=== PATIENT | female | born 1980 | race Asian ===

== ENCOUNTER 2017-07-25 10:45 | Outpatient (CLI) | payer BC ==
--- NOTE | 2017-07-25 12:04 | Discharge Instructions ---
Discharge Instructions Date of Service Jul 25, 2017. Admission Reason for Admission: R/O Labor Discharge Discharge Diagnosis / Problem: Discharge Goals Goal(s): Continuing OB care Activity Recommendations Activity Limitations: as noted below SPECIAL CARE INSTRUCTIONS: Call Doctor if: * Regular contractions every 5 minutes or greater than contractions in one hour. * Bleeding * Water breaks or is leaking * Decreased movement * Fever >100.4 degrees F * Pain not relieved by routine measures or pain medication ordered. FOLLOW UP VISIT: Return to Labor and Delivery on for /call for appointment time . Follow-up Visit with: When: . Current Hospital Diet Patient's current hospital diet: Discharge Diet Recommended Diet: Regular Diet Pending Studies Studies pending at discharge: no Medical Emergencies . Who to Call and When: Medical Emergencies: If at any time you feel your situation is an emergency, please call 911 immediately. . Non-Emergent Contact Non-Emergency issues call your: Specialist . . "Provider Documentation" section prepared by Jai Blancas. . VTE Core Measure Inpt VTE Proph given/why not?: Treatment not tolerated
--- NOTE | 2017-07-25 12:08 | Progress Note ---
Progress Note Date of Service Jul 25, 2017. Progress Note pt sent from office for labor check pt was 4-5cm/ in office came from office right away FHR; CAT1 Ctx; Minimal Pt and spouse wish to go home and wait for labor they live about 7 mins from here and can get here if ctx inc spouse tells me he has meeting felix at 3;00pm today and have to pick out hand her daughter. disch home with instructions
[2017-07-26] MEDS ORDERED: FERR1TAB23 PO (06:51)
[2017-07-26] MEDS ORDERED: PRENTAB26 PO (06:51)
== END 2017-07-25 12:18 | disposition home or self-care (01) ==
LOC: C.LD 10:45 → C.OPB 10:45
PROVIDERS: ATTEND Obstetrics & Gynecology
DX: O09.523 Supervision of elderly multigravida, third trimester (principal); Z3A.00 Weeks of gestation of pregnancy not specified

== ENCOUNTER 2017-07-26 03:05 | Inpatient (IN) | payer BC ==
[~2017-07-26] VITALS: Ht 157.5 cm; Wt 62.3 kg
[2017-07-26] MEDS ORDERED: FENTANYL CITRATE INJ 50 MCG/1 ML 2 ML VIAL ONE (04:11)
[2017-07-26] MEDS ORDERED: FENTANYL 2MCG/ML ROPIV 1.25MG/ML 100ML BAG EPI ONE (04:11)
[2017-07-26] MEDS ORDERED: EpHEDrine SULFATE INJ 50 MG/ML AMP ONE (04:11)
[2017-07-26] MEDS ORDERED: BUPIVACAINE 0.25% 30 ML VIAL ONE (04:11)
[2017-07-26 04:26] LABS: HEMATOCRIT 35.5 % (37-47); MEAN CELL VOLUME 89.6 fL (80-100); MEAN CORPUSCULAR HEMOGLOBIN 29.3 pg (25-34); MEAN CORPUSCULAR HGB CONC 32.7 g/dl (32-36); MEAN PLATELET VOLUME 10.4 fL (7.4-10.4); PLATELET COUNT 113 K/uL (130-400); RED BLOOD COUNT 3.96 M/uL (4.2-5.4); WHITE BLOOD COUNT 12.42 K/uL (4.8-10.8)
--- NOTE | 2017-07-26 05:22 | HISTORY & PHYSICAL EXAMINATION ---
DATE OF ADMISSION: 07/26/2017 HISTORY OF PRESENT ILLNESS: The patient is a 37-year-old G2, P1, due date 07/28/2017 making her 39 weeks and 5 days today who presented to labor and delivery in labor. On arrival, she had no shortness of breath, no chills, no fever. The patient had discomfort from labor contractions. She was examined and found to be 7 cm, 90% effaced and +1 station. The patient was therefore admitted in anticipation of labor. COURSE: Has been unremarkable. The patient has advanced maternal age. LABS: Blood type is A positive, antibody negative, rubella immune, GBS negative. PAST MEDICAL HISTORY: The patient has history of chronic thrombocytopenia. Platelets today is 111,000. PAST SURGICAL HISTORY: The patient has history of appendectomy. SOCIAL HISTORY: The patient denies tobacco, drug or alcohol use. ALLERGIES: No known drug allergies. ATTENDING PHYSICIAN HISTORY: The patient delivered a live infant female in January 2013. weighed 6 pounds 12 ounces. PHYSICAL EXAMINATION: GENERAL: Well-developed, well-nourished white female in no acute distress. HEART: S1, S2, regular rhythm and rate. LUNGS: Clear to auscultation bilaterally. ABDOMEN: Gravid. PELVIC EXAMINATION: 7 cm, 90% effaced and +1 station. EXTREMITIES: No cyanosis, clubbing or edema. ASSESSMENT AND PLAN: A 37-year-old G2, P1 at 39 and 5 weeks in labor. The patient has been admitted and we anticipate vaginal delivery.
[2017-07-26] MEDS ORDERED: LACTATED RINGER'S 1000ML 1,000 ML IV PRN (05:55)
[2017-07-26] MEDS ORDERED: LACTATED RINGER'S 1000ML 1,000 ML IV SCH ×2 (05:55→13:46)
[2017-07-26] MEDS ORDERED: FENTANYL 2MCG/ML ROPIV 1.25MG/ML 100ML BAG EPI PRN (06:00)
[2017-07-26] MEDS ORDERED: ONDANSETRON INJ 2 MG/ML 2 ML VIAL IV PRN (06:00)
[2017-07-26] MEDS ORDERED: EpHEDrine SULFATE INJ 50 MG/ML AMP IV PRN (06:00)
[2017-07-26] MEDS ORDERED: NALOXONE HCL INJ 1 MG in SODIUM CHLORIDE 0.9% 1000ML 1,000 ML IV PRN (06:00)
[2017-07-26] MEDS ORDERED: DiphenhydrAMINE HCL 50 MG/ML VIAL IV PRN (06:00)
[2017-07-26] MEDS ORDERED: NALOXONE HCL INJ 0.4 MG/1 ML VIAL/CARP IV PRN (06:00)
[2017-07-26] MEDS ORDERED: LACTATED RINGER'S 1000ML 500 ML IV PRN (06:00)
[2017-07-26] MEDS ORDERED: NALBUPHINE HCL INJ 10 MG/ML AMP IV PRN (06:00)
[2017-07-26 06:38] VITALS: Ht 157.5 cm; Wt 62.3 kg
[2017-07-26] MEDS ORDERED: FERR1TAB23 PO (06:51)
[2017-07-26] MEDS ORDERED: PRENTAB26 PO (06:51)
[2017-07-26] MEDS ORDERED: OXYTOCIN 30 UNITS/500ML NSS IV ONE (08:39)
[2017-07-26] MEDS ORDERED: ACETAMINOPHEN 325 MG TAB PO PRN (14:00)
[2017-07-26] MEDS ORDERED: OXYTOCIN 30 UNITS/500ML NSS IV PRN (14:00)
[2017-07-26] MEDS ORDERED: SUPERCREAM 0.870 % 15GM JAR EXT PRN (14:00)
[2017-07-26] MEDS ORDERED: BENZOCAINE 20% AER SPR 82.5 GM CAN EXT PRN (14:00)
[2017-07-26] MEDS ORDERED: HYDROCORTISONE ACETATE 25 MG SUPP PR PRN (14:00)
[2017-07-26] MEDS ORDERED: LANOLIN OINT EXT PRN ×2 (14:00)
[2017-07-26] MEDS ORDERED: OXYCODONE/ACETAMINOPHEN 5-325 TAB PO PRN (14:00)
--- NOTE | 2017-07-26 14:05 | Vaginal Delivery Summary ---
Vaginal Delivery Summary 37 A F P1001 at 39.5 weeks had persistent Cat 2 FHT and pushing for 2 plus hours and getting tired. Decision to use vacuum obtained by me from patient and who translated and witnessed by nurse in room at the time. Red rubber catheter used to empty the bladder. Baby noted to be +1 station JOHN position. Vacuum delivery with 2 prior attempts bringing the baby down followed by successful delivery of live male with vigorous cry at delivery of head. No pop offs. Apgars 8/10 with weight pending. Delayed cord clamping followed by cord blood. Spontaneous delivery of intact placenta sent to lab for evaluation. Second degree tear noted and repaired with 3/0 Vicryl suture. EBL 250 ml. Final sponge, needle and instrument count are correct. Mom and baby stable
--- NOTE | 2017-07-26 14:17 | Anesthesia Procedure Note ---
Anesthesia Epidural Removal Nt Date & Time Jul 26, 2017 at 14:16 Vital Signs Pain Intensity: 0.0 Notes Mental Status: alert / awake / arousable, participated in evaluation Nausea / Vomiting: adequately controlled Pain: adequately controlled Airway Patency, RR, SpO2: stable & adequate BP & HR: stable & adequate Hydration State: stable & adequate Neuraxial Anesthesia: was administered Anesthetic Complications: no major complications apparent, pt satisfied with anesthetic care Epidural: removed without complications, with tip intact
[2017-07-26] MEDS: IBUPROFEN 600 MG TAB PO PRN ×2 (17:19→22:05)
[2017-07-26 20:14] VITALS: BP 96/58; PULSE 71; TEMP 36.8; O2SAT 98
[2017-07-26] MEDS: DOCUSATE SODIUM 100 MG CAP PO SCH (21:30)
[2017-07-27 00:15] VITALS: BP 81/44; PULSE 65; TEMP 36.5; O2SAT 97
[2017-07-27 04:45] VITALS: BP 92/59; PULSE 62; TEMP 36.5; O2SAT 98
[2017-07-27] MEDS: IBUPROFEN 600 MG TAB PO PRN ×2 (04:46→08:53)
[2017-07-27 06:57] LABS: HEMATOCRIT 32.3 % (37-47)
[2017-07-27 07:47] VITALS: BP 97/54; PULSE 70; TEMP 36.4; O2SAT 98
[2017-07-27] MEDS ORDERED: MEASLES, MUMPS & RUBELLA VIRUS VIAL SQ. ONE (08:00)
[2017-07-27] MEDS ORDERED: DIPHTHERIA/TETANUS/PERTUSSIS 0.5 ML SYR/VIAL IM. ONE (08:00)
[2017-07-27] MEDS: PRENATAL VITAMIN TAB PO SCH (08:50)
[2017-07-27] MEDS: DOCUSATE SODIUM 100 MG CAP PO SCH ×2 (08:50→20:01)
[2017-07-27] MEDS: FERROUS SULFATE 325 MG TAB PO SCH (08:50)
--- NOTE | 2017-07-27 10:27 | OB/GYN Progress Note ---
[employer] COUNTER CLERK Progress Note Date of Service Jul 27, 2017. Subjective conversation w/ patient, physical exam Ambulation: ambulating normally Voiding: no voiding problems Passing Gas: Yes Diet Tolerance: Regular Diet Lochia: Moderate Feeding Type: Breast Feeding Pain: 2/10 Notes: Doing well, no concerns. Pain well controlled. Tolerating regular diet. Ambulating without difficulty. Lochia decreasing. Objective Vital Signs Date Time Temp Pulse Resp B/P (MAP) Pulse Ox O2 Delivery O2 Flow Rate FiO2 07/27/17 07:47 36.4 70 16 97/54 (68) 98 Room Air 07/27/17 04:45 36.5 62 18 92/59 (70) 98 Room Air 07/27/17 00:15 36.5 65 20 81/44 (56) 97 Room Air 07/27/17 00:15 97 Room Air 07/26/17 20:14 98 Room Air 07/26/17 20:14 36.8 71 18 96/58 (71) 98 Room Air Physical Exam General Appearance: WELL-APPEARING Respiratory/Chest: chest non-tender, lungs clear Cardiovascular: regular rate, rhythm Abdomen: normal bowel sounds, soft Fundus: Firm Extremities: normal range of motion, non-tender, no calf tenderness Laboratory Results Last 24 Hours Test 07/27/17 06:45 Hemoglobin 10.6 g/dL Hematocrit 32.3 % Assessment and Plan Post- Day Number: 1 Continue Routine Care: -Continue routine care -Anticipate d/c home tomorrow
[2017-07-27] MEDS ORDERED: MTR600X PO (10:28)
--- NOTE | 2017-07-27 10:29 | Discharge Instructions ---
Discharge Instructions Date of Service Jul 27, 2017. Admission Reason for Admission: Discharge Discharge Diagnosis / Problem: Vaginal delivery Discharge Goals Goal(s): Routine recovery after delivery Medications Continue Dispensed Medications: supercream, dermaplast, tucks, lansinoh Activity Recommendations Activity Limitations: per Instructions/Follow-up section . Instructions / Follow-Up Instructions / Follow-Up ACTIVITY RECOMMENDATIONS: * Gradual return to full activity over the next 2-3 weeks. * No lifting - nothing heavier than baby over the next 2-3 weeks. * Do not engage in vigorous exercise, sexual activity or sports until cleared by your physician. * Do not drive or operate any motorized equipment until cleared by your physician. * You may shower/bathe daily. BREAST CARE: If you are not breast feeding: * Wear a supportive bra 24 hours a day for one to two weeks. * Avoid stimulating your breasts and nipples as much as possible during the first few weeks after delivery. * When taking a shower, have the warm water hit your back, not breasts. * When your breasts feel full, apply ice packs. Usually three to four times a day helps ease the discomfort. * Take a mild pain medication (Tylenol/Motrin) when you are uncomfortable. If breast feeding: * Use breast milk to lubricate nipples. Lansinoh cream may be used for sore nipples. You do not need to remove cream prior to breast feeding. If using a different brand of cream, check the label for directions regarding removal of cream prior to nursing. * Wear a supportive bra. * If having problems with breasts or breast feeding, call a contaminated land consultant or your health care provider. EPISIOTOMY CARE: After delivery, if you have an episiotomy (stitches), the following steps will ease discomfort and aid healing. * For the first 24 hours after delivery, place ice packs next to your episiotomy to help reduce swelling. * After the first 24 hour-period, sitz baths, either portable or in the tub, are suggested. A shower with a shower arm sprayed over the episiotomy may be comforting. * Stella care should be done after each voiding and bowel movement. Squirt warm water from a plastic bottle over the perineum (region of the body between the anus and urinary opening) and pat dry. * Use Dermoplast to ease discomfort. Shake container. Moca directly over the episiotomy. * Place a Tucks on a clean sanitary pad next to your episiotomy. OVER THE COUNTER MEDICATION: * For discomfort or pain, you may use Acetaminophen (Tylenol), Ibuprofen (Advil ), or Naproxen (Aleve) following the package directions. * For constipation you may use Colace following the package directions. SPECIAL CARE INSTRUCTIONS: When you are discharged from the hospital, it is important for you to follow the instructions listed below: * During the first week at home, you should be able to care for yourself and your baby. In addition, the usual light household activities are encouraged. * Limit your activities to the way you feel. Do not try to clean the house or move furniture. Be sensible. * If you actively engage in sports and have done so up until the time of your delivery, you may resume these activities as soon as you feel able. This may take up to one month or even longer. Use good judgment. * Continue to take your vitamins for at least six weeks after the of your baby. * Your diet need not be limited unless you were on a special diet before your delivery. Breast-feeding mothers need around 2500 calories per day and at least 64-80 ounces of fluid per day (8 to 10 glasses). * You should eat foods from the four major food groups. Crash diets or fad diets are to be avoided. Eating lean meats, fresh fruits and vegetables, low-fat dairy products, high fiber foods and a regular exercise program, will help you get back to your pre- weight without putting your health at risk. * Constipation is sometimes a problem after delivery. Take a mild laxative as needed. If breast feeding, Milk of Magnesia is acceptable to use. You may use a suppository or Fleets enema if no episiotomy. * A daily shower or tub bath is suggested. Be sure to thoroughly and gently dry the perineum. * A bloody vaginal discharge will usually continue until around four weeks post . A small amount of bleeding may continue for as long as six weeks. Vaginal discharge changes from the bright red bleeding after delivery to pink then brownish and finally yellowish-pink before becoming white and disappearing. * Bleeding may increase with activity. Your first period may come in 4-8 weeks. If you are breast feeding, your period may be delayed even longer. * Henriette (sex) can begin whenever both you and your partner feel comfortable and do not have any form of genital infection. It is recommended that you wait until after your return appointment and discuss with your physician. If you have questions, please talk to your health care practitioner. A condom should be used to prevent infection and . * Foreplay, gentle intercourse and lubrication is very important the first several times to prevent pain. A water-based lubricant such as K-Y jelly or Astroglide may be used. * Tampons may be used six weeks after delivery. * Douching should be avoided for 6 weeks after delivery. * If you have RH negative blood and your baby is RH positive, you will receive RHOGAM by injection prior to discharge. The nurse will give you a card to keep with you that has the date and place that you received RHOGAM after delivery. * During your care, you had a Rubella screen done to check for the presence of rubella antibodies in your blood. If your test was negative, you will receive a Rubella vaccine prior to discharge. This vaccine may cause a fever, soreness at the injection site and flu-like symptoms. If these symptoms persist, notify your health care practitioner. is not advised for three months after a Rubella vaccine. There is a higher chance of having a baby with defects if conceived within three months of getting the vaccine. * If you were discharged 24 hours from delivery or before 48 hours: Visiting nurses will come to your home 48 hours after discharge to assess you and your baby. The visiting nurse will meet with you while you are in the hospital to arrange a time and get directions to your home. * Verbalizes understanding of car seat law as reviewed with patient nursing. * Car Seat hand-out given and reviewed with patient by nursing. * Shaken baby information reviewed with patient by nursing. Call you doctor if: * Heavy bleeding (saturating several pads an hour) or passing clots the size of your fist. * A fever >101 degrees F (38.3 degrees C) on two occasions four hours apart and/or chills. * Unusual pain in the pelvic or vaginal areas. * "Baby Blues" lasting longer than two weeks. If you have any questions or concerns, call your health care practitioner at . FOLLOW-UP VISIT: * Please call the office at to schedule a 6 week examination. It is important you keep this appointment. * It is important for you to make arrangements for either yearly or twice yearly check-ups thereafter. Current Hospital Diet Patient's current hospital diet: Regular OB Diet Discharge Diet Recommended Diet: Regular OB Diet Pending Studies Studies pending at discharge: no Medical Emergencies . Who to Call and When: Medical Emergencies: If at any time you feel your situation is an emergency, please call 911 immediately. . Non-Emergent Contact Non-Emergency issues call your: Primary Care Provider, Flower Grower . . "Provider Documentation" section prepared by Jose Mittal. . VTE Core Measure Inpt VTE Proph given/why not?: Treatment not indicated
[2017-07-27 11:30] VITALS: BP 97/57; PULSE 68; TEMP 36.8; O2SAT 98
[2017-07-27 15:30] VITALS: BP 90/55; PULSE 64; TEMP 36.7
[2017-07-27] MEDS ORDERED: BISACODYL 5 MG TABEC PO SCH (20:00)
[2017-07-28 00:30] VITALS: BP 92/52; PULSE 69; TEMP 36.7; O2SAT 99
[2017-07-28] MEDS: IBUPROFEN 600 MG TAB PO PRN (00:43)
[2017-07-28] MEDS ORDERED: BISACODYL 10 MG SUPP PR PRN (07:00)
[2017-07-28 07:50] VITALS: BP 94/50; PULSE 61; TEMP 36.7; O2SAT 95
[2017-07-28] MEDS: FERROUS SULFATE 325 MG TAB PO SCH (08:58)
[2017-07-28] MEDS: PRENATAL VITAMIN TAB PO SCH (08:58)
[2017-07-28] MEDS: DOCUSATE SODIUM 100 MG CAP PO SCH (08:58)
--- NOTE | 2017-07-28 10:40 | OB/GYN Progress Note ---
[facility] [employer] Progress Note Date of Service Jul 28, 2017. Subjective conversation w/ patient Ambulation: ambulating normally Voiding: no voiding problems Passing Gas: Yes Diet Tolerance: Regular Diet Lochia: Small Feeding Type: Breast Feeding Pain: 12/14 Notes: Doing well, no concerns. Would like to go home today. Review of Systems Constitutional: No fever, No chills, No sweats, No weight loss, No weakness, No fatigue, No problem reported Respiratory: No cough, No sputum, No wheezing, No shortness of breath, No dyspnea on exertion, No dyspnea at rest, No hemoptysis, No problem reported Cardiac: No chest pain, No orthopnea, No PND, No edema, No claudication, No palpitations, No problem reported Abdomen: No pain, No nausea, No vomiting, No diarrhea, No constipation, No GI bleeding, No problem reported Female : No see HPI, No dysuria, No urinary frequency, No hematuria, No incontinence, No abnormal vaginal bleeding, No vaginal discharge, No problem reported Objective Vital Signs Date Time Temp Pulse Resp B/P (MAP) Pulse Ox O2 Delivery O2 Flow Rate FiO2 07/28/17 00:30 99 Room Air 07/28/17 00:30 36.7 69 16 92/52 (65) 99 Room Air 07/27/17 15:30 36.7 64 16 90/55 (67) Room Air 07/27/17 15:30 Room Air 07/27/17 11:30 36.8 68 16 97/57 (70) 98 Room Air Assessment and Plan Post- Day Number: 2 Continue Routine Care: -D/C home today -F/U in 6 weeks.
[2017-07-28 14:54] VITALS: BP_DIAS 50; PULSE 61; TEMP 36.7
== END 2017-07-28 15:15 | disposition home or self-care (01) | DRG 775 ==
LOC: C.OPB 03:05 → C.LD 03:06 → C.OPB 03:56 → C.OBG 20:42
PROVIDERS: ADMIT Obstetrics & Gynecology; ATTEND Obstetrics & Gynecology
PROC: 10D07Z6 Extraction of Products of Conception, Vacuum, Via Natural or Artificial Opening (ICD-10-PCS; principal; 2017-07-26)
PROC: 0KQM0ZZ Repair Perineum Muscle, Open Approach (ICD-10-PCS; principal; 2017-07-26)
DX: O70.1 Second degree perineal laceration during delivery (principal); O99.12 Other diseases of the blood and blood-forming organs and certain disorders involving the immune mechanism complicating childbirth; Z3A.39 39 weeks gestation of pregnancy; D69.6 Thrombocytopenia, unspecified; Z37.0 Single live birth